=== PATIENT | male | born 1960 | race Caucasian/White ===

== ENCOUNTER 2018-10-05 10:51 | Day surgery (SDC) | payer MEDICAID ==
[2018-10-05] VITALS (14 sets, daily range): BP systolic 152–186; BP diastolic 54–100
[~2018-10-05] VITALS: Ht 162.6 cm; Wt 59.1 kg
[2018-10-05] MEDS ORDERED: CHOL100046 PO (11:59)
[2018-10-05] MEDS ORDERED: PANT40SU2 PO (12:00)
[2018-10-05] MEDS ORDERED: fentaNYL/PF 50MCG/1 ML 2ML syringe ONE (12:34)
[2018-10-05] MEDS ORDERED: diphenhydrAMINE 50 mg/ml inj ONE (12:35)
[2018-10-05] MEDS ORDERED: levoFLOXACIN-Levaquin 500mg/D5 100 ML IV ONE (12:35)
[2018-10-05] MEDS ORDERED: LIDOcaine Viscous 15ml cup ONE (12:35)
[2018-10-05] MEDS ORDERED: iohexol 300 MG/1 ML 50ml polymer ONE (12:35)
[2018-10-05] MEDS ORDERED: glucagon, human recombinant 1mg kit ONE ×2 (12:35)
[2018-10-05] MEDS ORDERED: MIDAZolam 5mg/5ml vial ONE (12:35)
== END 2018-10-05 16:25 | disposition home or self-care (01) ==
LOC: GI LAB 10:51
PROVIDERS: ATTEND Internal Medicine Gastroenterology
DX: K83.8 Other specified diseases of biliary tract (principal)
CPT/HCPCS: 43264; 43274; 74328; 99152; 99153; C1769; J1200; J1610; J1956; J2250; J3010; J7030; Q9967; A4620

== ENCOUNTER 2018-11-02 13:09 | Day surgery (SDC) | payer MEDICAID ==
[2018-11-02] VITALS (9 sets, daily range): BP systolic 137–148; BP diastolic 77–97
[~2018-11-02] VITALS: Ht 160 cm; Wt 59.1 kg
--- NOTE | 2018-11-02 12:58 | NUR ---
CORRECTED DISCHARGE TIME IS 1820. Addendum: 11/03/18 at 1259 by Vini Lucas RN Amended: Links added.
[~2018-11-02 13:09] MED LIST: CHOL100046 PO; PANT40SU2 PO
[2018-11-02] MEDS ORDERED: fentaNYL/PF 50MCG/1 ML 2ML syringe ONE (16:19)
[2018-11-02] MEDS ORDERED: MIDAZolam 5mg/5ml vial ONE (16:20)
[2018-11-02] MEDS ORDERED: glucagon, human recombinant 1mg kit ONE (16:20)
[2018-11-02] MEDS ORDERED: iohexol 300 MG/1 ML 50ml polymer ONE (16:20)
[2018-11-02] MEDS ORDERED: LIDOcaine Viscous 15ml cup ONE (16:20)
== END 2018-11-02 18:20 | disposition home or self-care (01) ==
LOC: GI LAB 13:09
PROVIDERS: ATTEND Internal Medicine Gastroenterology
DX: K83.8 Other specified diseases of biliary tract (principal); Z46.59 Encounter for fitting and adjustment of other gastrointestinal appliance and device
CPT/HCPCS: 43264; 43275; 74328; 99152; 99153; C1769; C1773; J1610; J2250; J3010; J7040; Q9967; A4620